=== PATIENT | male | born 1970 | race Caucasian/White ===

== ENCOUNTER 2017-07-06 06:09 | Emergency (ER) | payer BC ==
[2017-07-06] MEDS ORDERED: Morphine INJ* 4 MG/ML 1 ML CARPUJECT IV ONE (06:43)
[2017-07-06] MEDS ORDERED: Ondansetron INJ* 2 MG/ML VIAL IV ONE (06:43)
[2017-07-06] MEDS ORDERED: Ketorolac INJ* 30 MG/ML 1 ML VIAL IV ONE (06:43)
--- NOTE | 2017-07-06 06:48 | ED ---
Veronica Colon Rebecca, scribed for Wm Lee on 07/06/17 at 0629 . Abdominal Pain/Male - HPI Summary HPI Summary: Pt is a 46 y/o M who presents to ED c/o R flank and RLQ pain. Sx began yesterday at 0300, waking him up from sleep and resolved after 1-2 hours. Pain returned this morning and has not resolved. Pain is currently moderate, ranked 6 /10. Sx aggravated and alleviated by nothing. Additionally c/o N/V and urinary frequency and urgency stating it "feels like I got to use the bathroom and I can 't." Denies hematuria. PMHx kidney stones - 2 years ago had one blasted. - History of Current Complaint Chief Complaint: EDAbdPain Stated Complaint: LRQ PAIN Hx Obtained From: Patient Onset/Duration: Still Present Timing: Intermittent - Episode yestreday morning and another this morning Severity Currently: Moderate Pain Intensity: 6 Pain Scale Used: 0-10 Numeric Location: Discrete At: RLQ, Flank - Right Aggravating Factor(s): Nothing Alleviating Factor(s): Nothing Associated Signs And Symptoms: Positive: Nausea, Vomiting - Allergies/Home Medications Allergies/Adverse Reactions: Allergies Allergy/AdvReac Type Severity Reaction Status Date / Time No Known Allergies Allergy Verified 07/06/17 06:14 PMH/Surg Hx/FS Hx/Imm Hx Respiratory History: Reports: Hx Asthma History: Reports: Hx Kidney Stones Infectious Disease History: No Infectious Disease History: Denies: Traveled Outside the [place] in Last 30 Days - Family History Known Family History: Positive: Cardiac Disease, Hypertension - Social History Alcohol Use: Occasionally Substance Use Type: Reports: None Smoking Status (MU): Never Smoked Tobacco Review of Systems Positive: Abdominal Pain, Vomiting, Nausea Positive: frequency, urgency. Negative: hematuria All Other Systems Reviewed And Are Negative: Yes Physical Exam - Summary Physical Exam Summary: Appearance: Well appearing, no pain distress Skin: warm, dry, reflects adequate perfusion Head/face: normal Eyes: EOMI, SAW ENT: normal Neck: supple, nontender Respiratory: CTA, breath sounds present Cardiovascular: RRR, pulses symmetrical Abdomen: tenderness in R flank and RLQ, soft Bowel: present Musculoskeletal: normal, strength/ROM intact Neuro: normal, sensory motor intact, A&Ox3 Triage Information Reviewed: Yes Vital Signs On Initial Exam: Initial Vitals Temp Pulse Resp BP Pulse Ox 97 F 60 18 184/92 98 07/06/17 06:14 07/06/17 06:14 07/06/17 06:14 07/06/17 06:14 07/06/17 06:14 Vital Signs Reviewed: Yes Diagnostics - Vital Signs Vital Signs Temp Pulse Resp BP Pulse Ox 07/06/17 06:14 97 F 60 18 184/92 98 - Laboratory Lab Statement: Any lab studies that have been ordered have been reviewed, and results considered in the medical decision making process. Abdominal Pain Fem Course/Dx - Course Assessment/Plan: Pt is a 46 y/o M who presents to ED c/o RLQ and R flank pain. Sx began yesterday at 0300, waking him up from sleep and resolved after 1-2 hours. Pain returned this morning and has not resolved. Pain is currently moderate, ranked 6/10. Sx aggravated and alleviated by nothing. Additionally c/ o N/V and urinary frequency and urgency stating it "feels like I got to use the bathroom and I can't." Denies hematuria. PMHx kidney stones - 2 years ago had one blasted. Pt will be signed out to Dr. Thomas, pending disposition, awaiting CT Abd/Pel. Medications reviewed. Elevated BP noted. - Diagnoses Provider Diagnoses: Flank pain, R/O renal colic Discharge - Discharge Plan Condition: Stable Disposition: OTHER Discharge Disposition Comment: Pt will be signed out to Dr. Thomas, pending dispo , awaiting CT Abd/Pel. The documentation as recorded by the Veronica deleon Rebecca accurately reflects the service I personally performed and the decisions made by , Wm Lee.
[2017-07-06 07:18] LABS: Hematocrit 44 % (42-52); Mean Corpuscular HGB Conc 34 g/dl (31-36); Mean Corpuscular Hemoglobin 30 pg (27-31); Mean Corpuscular Volume 88 fL (80-94); Mean Platelet Volume 8 um3 (7.4-10.4); Red Cell Distribution Width 14 % (10.5-15); White Blood Count 9.8 10^3/ul (3.5-10.8)
[2017-07-06 07:29] LABS: ALT 35 U/L (7-52); Alkaline Phosphatase 56 U/L (34-104); BUN/Creatinine Ratio 17.4 (8-20); Blood Urea Nitrogen 15 mg/dL (6-24); CO2 Carbon Dioxide 26 mmol/L (22-32); Calcium 9.9 mg/dL (8.6-10.3); Chloride 102 mmol/L (101-111); EGFR African American 124.2 (>60); EGFR Non-African American 96.6 (>60); Globulin 3.1 g/dL (2-4); Glucose 190 mg/dL (70-100); Lipase 68 U/L (11.0-82.0); Sodium 134 mmol/L (133-145); Total Protein 7.1 g/dL (6.4-8.9)
--- NOTE | 2017-07-06 07:37 | RAD ---
CLINICAL HISTORY: Right flank pain, rule out renal colic COMPARISON: None TECHNIQUE: Multiple contiguous axial CT scans were obtained of the abdomen and pelvis, without intravenous contrast enhancement. Coronal and sagittal multiplanar reformations are submitted for review. Oral contrast was not administered. FINDINGS: The study is limited by the lack of intravenous contrast. This limits evaluation of the solid organs and vasculature. LUNG BASES: The lung bases are clear. LIVER: The liver is diffusely low in attenuation compared to the spleen. There are no focal hepatic parenchymal masses. BILE DUCTS: There is no intrahepatic or extrahepatic biliary dilatation. GALLBLADDER: The gallbladder is normal, without pericholecystic inflammatory change. PANCREAS: The pancreas is normal, without mass or ductal dilatation. SPLEEN: Normal in size and appearance. UPPER GI TRACT: Evaluation of the gastrointestinal tract is limited by incomplete gastric distention. The upper GI tract is unremarkable. SMALL BOWEL AND MESENTERY: The small bowel is normal in contour, course, and caliber. There is no obstruction or dilatation. COLON: The colon is normal in contour, course, caliber. There is no pericolonic inflammatory change. ADRENALS: Normal bilaterally. KIDNEYS: There are multiple renal calyceal stones bilaterally measuring up to 0.6 cm in size. There is a 0.5 cm calculus of the left UPJ without appreciable nephrosis. There is a 0.4 cm calculus of the right distal ureter, just proximal to the right UVJ, with mild hydroureter and pelviectasis with mild stranding of the periureteral fat. BLADDER: The bladder is smooth in contour. PELVIC ORGANS: The prostate gland is normal. The seminal vesicles are symmetric. AORTA: The aorta is normal. IVC: Unremarkable LYMPH NODES: There is no lymphadenopathy by size criteria. ABDOMINAL WALL: There are small fat-containing inguinal hernias bilaterally. BONES AND SOFT TISSUES: Degenerative changes are noted most pronounced at L5-S1 OTHER: None IMPRESSION: 1. BILATERAL NEPHROLITHIASIS. THIS INCLUDES A 0.4 CM CALCULUS OF THE DISTAL RIGHT URETER JUST PROXIMAL TO THE RIGHT UVJ, AND A 0.5 CM CALCULUS OF THE LEFT UPJ. THERE IS MILD HYDROURETER NEPHROSIS ON THE RIGHT. 2. FATTY LIVER
[2017-07-06 08:26] LABS: Urine Bacteria Absent (Absent); Urine Bilirubin Negative (Negative); Urine Glucose 1+(50 mg/dL) (Negative); Urine Nitrite Negative (Negative)
[2017-07-06] MEDS ORDERED: NS 0.9% 1000 ML* 1,000 ML IV ONE (08:44)
[2017-07-06 08:58] LABS: Anion Gap 6 mmol/L (2-11)
[2017-07-06 11:15] VITALS: BP 136/103
--- NOTE | 2017-07-06 12:22 | ED ---
Charlotte Colon Nilda, scribed for Bari Thomas MD on 07/06/17 at 0836 . Progress - Progress Note Progress Note: This patient was signed out by Dr. Lee, pending dispo, awaiting CT Abd/Pel. CT Abd/Pel reveals: 1. Bilateral nephrolithiasis. This includes a 0.4 cm calculus of the distal right ureter just proximal to the right UVJ, and a 0.5 cm calculus of the left UPJ. There is mild hydroureter nephrosis on the right. 2. Fatty liver. ED physician reviewed report and agrees. [[id number]] Re-eval: Patient is feeling better. Patient is stable and will be discharged with a diagnosis of Kidney stone, prescriptions for Hydrocodone and Tamsulosin, and a follow up with Dr. Poole (Urologist). Patient is agreeable with this plan. Course/Dx - Diagnoses Provider Diagnoses: Flank pain, R/O renal colic The documentation as recorded by the Charlotte deleon Nilda accurately reflects the service I personally performed and the decisions made by , Bari Thomas MD.
== END 2017-07-06 11:16 ==
LOC: ED 06:09
DX: R10.84 Generalized abdominal pain (principal); N23 Unspecified renal colic
CPT/HCPCS: 36415; 74176; 80053; 81003; 81015; 83690; 85025; 85610; 85730; 96374; 96375; 99283; J1885; J2270; J2405